=== PATIENT | male | born 1965 | race Caucasian/White ===

== ENCOUNTER 2018-07-27 10:28 | Emergency (ER) | payer MEDICARE ==
--- NOTE | 2018-07-27 11:12 | EDM.PDOC ---
ED HPI GENERAL MEDICAL PROBLEM - General Chief Complaint: Skin Complaint Stated Complaint: RIGHT HAND SWOLLEN,DRAINING Time Seen by Provider: 07/27/18 11:08 Source of Information: Reports: Patient History Limitations: Reports: No Limitations - History of Present Illness INITIAL COMMENTS - FREE TEXT/NARRATIVE: HISTORY AND PHYSICAL: History of present illness: Patient is a 52-year-old male here with complaint of infection on his right hand. He states he has been dealing with this for the past 3 months and is "fed up with "which is why he is here in the ER today. He has been seen at [facility] twice and had it drained, culture showed staph and he was placed on an antibiotic. He states it will get a little bit better but will continue to drain pus occasionally. He has noted a little bit more redness and irritation recently. He denies fevers or chills. 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 He denies any recent injury or trauma that started this recent infection. Past medical history significant for hypertension. Review of systems: As per history of present illness and below otherwise all systems reviewed and negative. Past medical history: As per history of present illness and as reviewed below otherwise noncontributory. Surgical history: As per history of present illness and as reviewed below otherwise noncontributory. Social history: No reported history of drug or alcohol abuse. Family history: As per history of present illness and as reviewed below otherwise noncontributory. Physical exam: General: Patient sitting comfortably in no acute distress and nontoxic appearing HEENT: Atraumatic, normocephalic, pupils reactive, negative for conjunctival pallor or scleral icterus, mucous membranes moist, throat clear, neck supple, nontender, trachea midline. No meningeal signs. Lungs: Clear to auscultation, breath sounds equal bilaterally, chest nontender. Heart: S1S2, regular, negative for clicks, rubs, or overt murmur. Abdomen: Soft, nondistended, nontender. Negative for masses or hepatosplenomegaly. Negative for costovertebral tenderness. Pelvis: Stable nontender. Genitourinary: Deferred. Rectal: Deferred. Extremities: There is an area of slight erythema to the dorsal right hand with a crusted center with some purulent drainage. There is no warmth or pain to palpatin. Atraumatic, negative for cords or calf pain. Neurovascular unremarkable. Neuro: Awake, alert, oriented. Cranial nerves II through XII unremarkable. Cerebellum unremarkable. Motor and sensory unremarkable throughout. Exam nonfocal. Notes: Diagnostics: x-ray right hand Therapeutics: None Prescriptions: Bactrim Impression: Cellulitis of hand Plan: 1. Take antibiotic and warm compresses as instructed. 2. Follow-up with hand surgery, please call the number provided to schedule your appointment. 3. Return to ED as needed as discussed Definitive disposition and diagnosis as appropriate pending reevaluation and review of above. Right Hand Pain Score (Numeric/FACES): 6 - Related Data Allergies Allergy/AdvReac Type Severity Reaction Status Date / Time No Known Allergies Allergy Verified 07/27/18 10:58 Home Meds: Home Meds Cimetidine [Tagamet Hb] 200 mg PO DAILY 07/27/18 [History] DULoxetine HCl [Cymbalta] 60 mg PO DAILY 07/27/18 [History] Lisinopril 10 mg PO DAILY 07/27/18 [History] Naproxen [Naprosyn] 500 mg PO PRN 07/27/18 [History] Sulfamethoxazole/Trimethoprim [Bactrim Ds Tablet] 1 each PO BID 7 Days #14 tablet 07/27/18 [Rx] amLODIPine Besylate [Norvasc] 5 mg PO DAILY 07/27/18 [History] Past Medical History Cardiovascular History: Reports: Hypertension Respiratory History: Reports: COPD - Past Surgical History HEENT Surgical History: Reports: Naso-Sinus Surgery, Oral Surgery Other Cardiovascular Surgeries/Procedures: states he has had major "chest surgery" Musculoskeletal Surgical History: Reports: Other (See Below) Other Musculoskeletal Surgeries/Procedures:: hand surgeries Social & Family History - Family History Family Medical History: Noncontributory - Tobacco Use Smoking Status *Q: Current Every Day Smoker Years of Tobacco use: 35 Packs/Tins Daily: 1 - Recreational Drug Use Recreational Drug Use: No ED ROS GENERAL - Review of Systems Review Of Systems: ROS reveals no pertinent complaints other than HPI. ED EXAM, SKIN/RASH Exam: See Below (see dictation) Course - Vital Signs Last Recorded V/S: Last Vital Signs Temp 97.4 F 07/27/18 10:56 Pulse 84 07/27/18 10:56 Resp 18 07/27/18 10:56 BP 147/63 H 07/27/18 10:56 Pulse Ox 98 07/27/18 10:56 Departure - Departure Time of Disposition: 11:45 Disposition: Home, Self-Care 01 Condition: Good Clinical Impression: Cellulitis and abscess of hand - Discharge Information Prescriptions: Sulfamethoxazole/Trimethoprim [Bactrim Ds Tablet] 1 each PO BID 7 Days #14 tablet Referrals: PCP,None [Primary Care Provider] - Jigna Cervantes MD [Physician] - 2 Weeks Forms: ED Department Discharge Additional Instructions: The following information is given to patients seen in the emergency department who are being discharged to home. This information is to outline your options for follow-up care. We provide all patients seen in our emergency department with a follow-up referral. The need for follow-up, as well as the timing and circumstances, are variable depending upon the specifics of your emergency department visit. If you don't have a primary care physician on staff, we will provide you with a referral. We always advise you to contact your personal physician following an emergency department visit to inform them of the circumstance of the visit and for follow-up with them and/or the need for any referrals to a consulting specialist. The emergency department will also refer you to a specialist when appropriate. This referral assures that you have the opportunity for follow-up care with a specialist. All of these measure are taken in an effort to provide you with optimal care, which includes your follow-up. Under all circumstances we always encourage you to contact your private physician who remains a resource for coordinating your care. When calling for follow-up care, please make the office aware that this follow-up is from your recent emergency room visit. If for any reason you are refused follow-up, please contact the [facility] Emergency Department at and asked to speak to the emergency department charge nurse. [facility] - [facility] Pl[facility] Professional Building [address] [place] [address], [address] [place] [address] 1. Take antibiotic and warm compresses as instructed. 2. Follow-up with hand surgery, please call the number provided to schedule your appointment. 3. Return to ED as needed as discussed
--- NOTE | 2018-07-27 11:38 | CR ---
EXAMINATION: Right hand HISTORY: Cellulitis COMPARISON: None TECHNIQUE: 2 views FINDINGS: Post amputation changes of the third digit and metacarpal noted. The remaining osseous structures appear intact. Bone mineralization appears grossly normal. Periosteal thickening noted involving the second and fourth metacarpals, likely chronic. Mild osteoarthritic changes noted at the first MCP joint. No subcutaneous gas formation. IMPRESSION: 1. No acute osseous abnormality identified.
== END 2018-07-27 11:58 | disposition home or self-care (01) ==
LOC: MW.ED 10:28
DX: L03.113 Cellulitis of right upper limb (principal); L02.511 Cutaneous abscess of right hand; I10 Essential (primary) hypertension; F17.210 Nicotine dependence, cigarettes, uncomplicated; Z79.899 Other long term (current) drug therapy
CPT/HCPCS: 73120-26-RT; 73120-RT; 99283

== ENCOUNTER 2018-12-21 18:31 | Emergency (ER) | payer MEDICARE, OTHER ==
--- NOTE | 2018-12-21 18:56 | EDM.PDOC ---
ED HPI GENERAL MEDICAL PROBLEM - General Chief Complaint: General Stated Complaint: MEDICAL CLEARANCE Time Seen by Provider: 12/21/18 18:32 Source of Information: Reports: Patient History Limitations: Reports: No Limitations - History of Present Illness INITIAL COMMENTS - FREE TEXT/NARRATIVE: HISTORY AND PHYSICAL: History of present illness: Patient is a 53-year-old male who presents to the emergency room with law enforcement for medical clearance. Patient states he has a history of hypertension and is concerned about a blister to his left ankle. Patient reports he is on antihypertensive medications which she does take daily. Concerned his blood pressure might be high right now. He states he noticed a blister to his left ankle earlier this week, states he saw Dr. Hills for this. He states he did have lab work and a referral to podiatry. Stating "he's not sure what it is". Patient states he has the appointment with podiatry next week. She offers no other complaints or concerns at this time. Patient denies any fever, chills, headache, change in vision, syncope or near syncope. Denies any chest pain, back pain, shortness of breath or cough. Denies any abdominal pain, nausea, vomiting, diarrhea, constipation or dysuria. Has not noted any blood in urine or stool. Patient has been eating and drinking appropriately. Review of systems: As per history of present illness and below otherwise all systems reviewed and negative. Past medical history: As per history of present illness and as reviewed below otherwise noncontributory. Surgical history: As per history of present illness and as reviewed below otherwise noncontributory. Social history: See social history for further information Family history: As per history of present illness and as reviewed below otherwise noncontributory. Physical exam: General: Well-developed and well-nourished 53-year-old male. Alert and oriented. Nontoxic appearing and in no acute distress. HEENT: Atraumatic, normocephalic, pupils equal and reactive bilaterally, negative for conjunctival pallor or scleral icterus, mucous membranes moist, trachea midline. No drooling or trismus noted. No meningeal signs. No hot potato voice noted. Lungs: Clear to auscultation, breath sounds equal bilaterally, chest nontender. Heart: S1S2, regular rate and rhythm without overt murmur Abdomen: Soft, nondistended, nontender. Skin: 4 mm circular blister noted to the left lateral ankle. Otherwise skin is intact, warm, dry. No lesions or rashes noted. Extremities: Atraumatic, moves all extremities per self without difficulty or deficits, negative for cords or calf pain. Neurovascular unremarkable. Neuro: Awake, alert, oriented. Cranial nerves II through XII unremarkable. Cerebellum unremarkable. Motor and sensory unremarkable throughout. Exam nonfocal. Notes: Patient states that he had x-rays and lab work done at [facility] earlier this week. He declines the need for further evaluation of this. Vital signs are stable at this time. He states that he does have his medications available to him. Bedside Glucose is 101. Supportive care measures were reviewed and discussed. Voices understanding and is agreeable to plan of care. Denies any further questions or concerns at this time. Diagnostics: None Therapeutics: None Prescription: None Impression: Encounter for medical clearance History of hypertension Blister Plan: 1. Take your home medications as prescribed and as directed. 2. Continue seeing Dr. Hills and the lettuce cutter as you already have arranged for your foot care needs. 3. Return to the ED as needed and as discussed. Definitive disposition and diagnosis as appropriate pending reevaluation and review of above. feet, back, shoulders, hip Pain Score (Numeric/FACES): 9 - Related Data Allergies Allergy/AdvReac Type Severity Reaction Status Date / Time No Known Allergies Allergy Verified 12/21/18 18:43 Home Meds: Home Meds Cimetidine [Tagamet Hb] 200 mg PO DAILY 07/27/18 [History] DULoxetine HCl [Cymbalta] 60 mg PO DAILY 07/27/18 [History] Lisinopril 10 mg PO DAILY 07/27/18 [History] Naproxen [Naprosyn] 500 mg PO PRN 07/27/18 [History] amLODIPine Besylate [Norvasc] 5 mg PO DAILY 07/27/18 [History] Hydrocodone/Acetaminophen [Hydrocodon-Acetaminophn 10-325] 1 tab PO BID [History] Past Medical History Cardiovascular History: Reports: Hypertension Respiratory History: Reports: COPD - Past Surgical History HEENT Surgical History: Reports: Naso-Sinus Surgery, Oral Surgery Other Cardiovascular Surgeries/Procedures: states he has had major "chest surgery" Respiratory Surgical History: Reports: Other (See Below) Other Respiratory Surgeries/Procedures: "lost half my lung" Musculoskeletal Surgical History: Reports: Other (See Below) Other Musculoskeletal Surgeries/Procedures:: hand surgeries Social & Family History - Family History Family Medical History: Noncontributory - Tobacco Use Smoking Status *Q: Current Every Day Smoker Years of Tobacco use: 45 Packs/Tins Daily: 2 - Alcohol Use Days Per Week of Alcohol Use: 7 Number of Drinks Per Day: 5 Total Drinks Per Week: 35 - Recreational Drug Use Recreational Drug Use: No ED ROS GENERAL - Review of Systems Review Of Systems: ROS reveals no pertinent complaints other than HPI. ED EXAM, GENERAL - Physical Exam Exam: See Below (See dictation) Course - Vital Signs Last Recorded V/S: Last Vital Signs Temp 98.1 F 12/21/18 18:38 Pulse 101 H 12/21/18 18:38 Resp 20 12/21/18 18:38 BP 129/66 12/21/18 18:38 Pulse Ox 93 L 12/21/18 18:38 Departure - Departure Time of Disposition: 18:55 Disposition: Home, Self-Care 01 Clinical Impression: Medical clearance for incarceration, History of hypertension, Blister - Discharge Information Instructions: Medical Screening Exam Referrals: Noé Hills MD [Primary Care Provider] - Forms: ED Department Discharge Additional Instructions: The following information is given to patients seen in the emergency department who are being discharged to home. This information is to outline your options for follow-up care. We provide all patients seen in our emergency department with a follow-up referral. The need for follow-up, as well as the timing and circumstances, are variable depending upon the specifics of your emergency department visit. If you don't have a primary care physician on staff, we will provide you with a referral. We always advise you to contact your personal physician following an emergency department visit to inform them of the circumstance of the visit and for follow-up with them and/or the need for any referrals to a consulting specialist. The emergency department will also refer you to a specialist when appropriate. This referral assures that you have the opportunity for follow-up care with a specialist. All of these measure are taken in an effort to provide you with optimal care, which includes your follow-up. Under all circumstances we always encourage you to contact your private physician who remains a resource for coordinating your care. When calling for follow-up care, please make the office aware that this follow-up is from your recent emergency room visit. If for any reason you are refused follow-up, please contact the [facility] Emergency Department at and asked to speak to the emergency department charge nurse. [facility] [address] [place] [id number] [facility] [address] [place] [id number] 1. Take your home medications as prescribed and as directed. 2. Continue seeing Dr. Hills and the lettuce cutter as you already have arranged for your foot care needs. 3. Return to the ED as needed and as discussed.
== END 2018-12-21 19:12 | disposition home or self-care (01) ==
LOC: MW.ED 18:31
DX: S90.522A Blister (nonthermal), left ankle, initial encounter (principal); I10 Essential (primary) hypertension; J44.9 Chronic obstructive pulmonary disease, unspecified; F17.210 Nicotine dependence, cigarettes, uncomplicated; Z79.899 Other long term (current) drug therapy; X58.XXXA Exposure to other specified factors, initial encounter
CPT/HCPCS: 82962; 99283

== ENCOUNTER 2019-02-02 01:06 | Emergency (ER) | payer MEDICARE ==
[2019-02-02] MEDS ORDERED: Ketorolac 30 MG/ML SDV IM ONE (01:31)
[2019-02-02 02:06] LABS: CHLORIDE,CL 99 mmol/L (98-107); SODIUM,NA 135 mmol/L (136-148)
--- NOTE | 2019-02-02 03:10 | EDM.PDOC ---
ED HPI GENERAL MEDICAL PROBLEM - General Chief Complaint: Lower Extremity Injury/Pain Stated Complaint: NEUROPATHY IN BOTH FEET- EXTREME PAIN Time Seen by Provider: 02/02/19 03:06 - History of Present Illness INITIAL COMMENTS - FREE TEXT/NARRATIVE: HISTORY AND PHYSICAL: History of present illness: Patient's 53-year-old white male with history of neuropathy who presents with concern of bilateral foot pain. This is a chronic condition he had no trauma no fever no chills no other complaints. Review of systems: As per history of present illness and below otherwise all systems reviewed and negative. Past medical history: As per history of present illness and as reviewed below otherwise noncontributory. Surgical history: As per history of present illness and as reviewed below otherwise noncontributory. Social history: No reported history of drug or alcohol abuse. Family history: As per history of present illness and as reviewed below otherwise noncontributory. Physical exam: HEENT: Atraumatic, normocephalic, pupils reactive, negative for conjunctival pallor or scleral icterus, mucous membranes moist, throat clear, neck supple, nontender, trachea midline. Lungs: Clear to auscultation, breath sounds equal bilaterally, chest nontender. Heart: S1S2, regular, negative for clicks, rubs, or JVD. Abdomen: Soft, nondistended, nontender. Negative for masses or hepatosplenomegaly. Negative for costovertebral tenderness. Pelvis: Stable nontender. Genitourinary: Deferred. Rectal: Deferred. Extremities: Atraumatic, negative for cords or calf pain. Neurovascular unremarkable. Neuro: Awake, alert, oriented. Cranial nerves II through XII unremarkable. Cerebellum unremarkable. Motor and sensory unremarkable throughout. Exam nonfocal. Diagnostics: CBC CMP Therapeutics: Toradol 30 mg IM Impression: #1 chronic foot pain #2 neuropathy Definitive disposition and diagnosis as appropriate pending reevaluation and review of above. bilateral feet Pain Score (Numeric/FACES): 10 - Related Data Allergies Allergy/AdvReac Type Severity Reaction Status Date / Time No Known Allergies Allergy Verified 02/02/19 01:28 Home Meds: Home Meds Cimetidine [Tagamet Hb] 200 mg PO DAILY 07/27/18 [History] DULoxetine HCl [Cymbalta] 60 mg PO DAILY 07/27/18 [History] Lisinopril 10 mg PO DAILY 07/27/18 [History] Naproxen [Naprosyn] 500 mg PO PRN 07/27/18 [History] amLODIPine Besylate [Norvasc] 5 mg PO DAILY 07/27/18 [History] Past Medical History Cardiovascular History: Reports: Hypertension Respiratory History: Reports: COPD Gastrointestinal History: Reports: GERD Genitourinary History: Reports: None Neurological History: Reports: Neuropathy, Peripheral Psychiatric History: Reports: Depression Endocrine/Metabolic History: Reports: None Hematologic History: Reports: None Oncologic (Cancer) History: Reports: None Dermatologic History: Reports: None - Past Surgical History HEENT Surgical History: Reports: Naso-Sinus Surgery, Oral Surgery Other Cardiovascular Surgeries/Procedures: states he has had major "chest surgery" Respiratory Surgical History: Reports: Other (See Below) Other Respiratory Surgeries/Procedures: "lost half my lung" Musculoskeletal Surgical History: Reports: Other (See Below) Other Musculoskeletal Surgeries/Procedures:: hand surgeries Social & Family History - Family History Family Medical History: Noncontributory - Tobacco Use Smoking Status *Q: Current Every Day Smoker Years of Tobacco use: 40 Packs/Tins Daily: 1 - Recreational Drug Use Recreational Drug Use: No Review of Systems - Review of Systems Review Of Systems: ROS reveals no pertinent complaints other than HPI. ED EXAM, GENERAL - Physical Exam Exam: See Below (See dictation) Course - Vital Signs Last Recorded V/S: Last Vital Signs Temp 36.8 C 02/02/19 01:31 Pulse 85 02/02/19 01:31 Resp 18 02/02/19 01:31 BP 114/88 02/02/19 01:31 Pulse Ox 96 02/02/19 01:31 - Orders/Labs/Meds Labs: Laboratory Tests 02/02/19 02/02/19 Range/Units 01:40 01:40 WBC 14.35 H (4.0-11.0) K/uL RBC 5.03 (4.50-5.90) M/uL Hgb 15.2 (13.0-17.0) g/dL Hct 43.1 (38.0-50.0) % MCV 85.7 (80.0-98.0) fL MCH 30.2 (27.0-32.0) pg MCHC 35.3 (31.0-37.0) g/dL RDW Std Deviation 44.8 (28.0-62.0) fl RDW Coeff of Bety 15 (11.0-15.0) % Plt Count 221 (150-400) K/uL MPV 8.70 (7.40-12.00) fL Neut % (Auto) 20.5 L (48.0-80.0) % Lymph % (Auto) 65.0 H (16.0-40.0) % [place] % (Auto) 10.9 (0.0-15.0) % Eos % (Auto) 3.3 (0.0-7.0) % Baso % (Auto) 0.3 (0.0-1.5) % Neut # (Auto) 2.9 (1.4-5.7) K/uL Lymph # (Auto) 9.3 H (0.6-2.4) K/uL [place] # (Auto) 1.6 H (0.0-0.8) K/uL Eos # (Auto) 0.5 (0.0-0.7) K/uL Baso # (Auto) 0.0 (0.0-0.1) K/uL Sodium 135 L (136-148) mmol/L Potassium 4.0 (3.5-5.1) mmol/L Chloride 99 (98-107) mmol/L Carbon Dioxide 24.4 (21.0-32.0) mmol/L BUN 8 (7.0-18.0) mg/dL Creatinine 0.5 L (0.8-1.3) mg/dL Est Cr Clr Drug Dosing 174.39 mL/min Estimated GFR (MDRD) > 60.0 ml/min Glucose 95 (74-106) mg/dL Calcium 8.6 (8.5-10.1) mg/dL Total Bilirubin 0.4 (0.2-1.0) mg/dL AST 42 H (15-37) IU/L ALT 41 (14-63) IU/L Alkaline Phosphatase 109 (46-116) U/L Creatine Kinase 49 (26-308) U/L Total Protein 7.2 (6.4-8.2) g/dL Albumin 4.0 (3.4-5.0) g/dL Globulin 3.2 (2.6-4.0) g/dL Albumin/Globulin Ratio 1.3 (0.9-1.6) Meds: Medications Discontinued Medications Generic Name Dose Route Start Last Admin Trade Name Shreyas PRN Reason Stop Dose Admin Ketorolac Tromethamine 30 mg 02/02/19 01:31 02/02/19 01:52 Toradol IM 02/02/19 01:32 30 mg ONETIME ONE Administration Departure - Departure Time of Disposition: 03:09 Disposition: Home, Self-Care 01 Condition: Good Clinical Impression: Chronic foot pain, Neuropathy - Discharge Information Referrals: Noé Hills MD [Primary Care Provider] - Additional Instructions: The following information is given to patients seen in the emergency department who are being discharged to home. This information is to outline your options for follow-up care. We provide all patients seen in our emergency department with a follow-up referral. The need for follow-up, as well as the timing and circumstances, are variable depending upon the specifics of your emergency department visit. If you don't have a primary care physician on staff, we will provide you with a referral. We always advise you to contact your personal physician following an emergency department visit to inform them of the circumstance of the visit and for follow-up with them and/or the need for any referrals to a consulting specialist. The emergency department will also refer you to a specialist when appropriate. This referral assures that you have the opportunity for followup care with a specialist. All of these measure are taken in an effort to provide you with optimal care, which includes your followup. Under all circumstances we always encourage you to contact your private physician who remains a resource for coordinating your care. When calling for followup care, please make the office aware that this follow-up is from your recent emergency room visit. If for any reason you are refused follow-up, please contact the [facility] emergency department at and asked to speak to the emergency department charge nurse. [facility] - Podiatry [address] [place] [id number] Fax: [phone] Continue current medications follow-up private medical doctor/podiatry as discussed return as needed as discussed
== END 2019-02-02 03:11 | disposition home or self-care (01) ==
LOC: MW.ED 01:06
DX: G62.9 Polyneuropathy, unspecified (principal); F17.210 Nicotine dependence, cigarettes, uncomplicated; I10 Essential (primary) hypertension; Z79.899 Other long term (current) drug therapy
CPT/HCPCS: 36415; 80053; 82550; 85025; 96372; 99283; J1885

== ENCOUNTER 2019-02-10 17:10 | Emergency (ER) | payer MEDICARE ==
[2019-02-10] MEDS ORDERED: Ketorolac 60 MG/2 ML SDV IM ONE (17:34)
[2019-02-10 18:08] LABS: CHLORIDE,CL 94 mmol/L (98-107); SODIUM,NA 128 mmol/L (136-148)
--- NOTE | 2019-02-10 18:19 | EDM.PDOC ---
ED HPI GENERAL MEDICAL PROBLEM - General Chief Complaint: Lower Extremity Injury/Pain Stated Complaint: FEET SWELLING, PAIN Time Seen by Provider: 02/10/19 17:25 Source of Information: Reports: Patient History Limitations: Reports: No Limitations - History of Present Illness INITIAL COMMENTS - FREE TEXT/NARRATIVE: HISTORY AND PHYSICAL: History of present illness: patient is a 53-year-old male presents to the ED with complaint of bilateral foot pain and swelling. Patient is going on for about 2 months and is concerned that he is going to lose his feet. He has a primary care provider, basket patcher, and will be seeing a senior java j2ee developer on Wednesday. he states he has numbness on the tops of both feet. He denies fevers or chills. Review of systems: As per history of present illness and below otherwise all systems reviewed and negative. Past medical history: As per history of present illness and as reviewed below otherwise noncontributory. Surgical history: As per history of present illness and as reviewed below otherwise noncontributory. Social history: No reported history of drug or alcohol abuse. Family history: As per history of present illness and as reviewed below otherwise noncontributory. Physical exam: General: Patient sitting comfortably in no acute distress and nontoxic appearing HEENT: Atraumatic, normocephalic, pupils reactive, negative for conjunctival pallor or scleral icterus, mucous membranes moist, throat clear, neck supple, nontender, trachea midline. No meningeal signs. Lungs: Clear to auscultation, breath sounds equal bilaterally, chest nontender. Heart: S1S2, regular, negative for clicks, rubs, or overt murmur. Abdomen: Soft, nondistended, nontender. Negative for masses or hepatosplenomegaly. Negative for costovertebral tenderness. No rigidity, rebound , guarding. Pelvis: Stable nontender. Genitourinary: Deferred. Rectal: Deferred. Extremities: 1+ edema of the feet bilaterally. Scabbed area on the top of the right foot with some surrounding erythema and warmth. dorsalis pedis pulses are 2+ bilaterally negative for cords or calf pain. Neurovascular unremarkable. Neuro: Awake, alert, oriented. Cranial nerves II through XII unremarkable. Cerebellum unremarkable. Motor and sensory unremarkable throughout. Exam nonfocal. Notes: Diagnostics: CBC, CMP, x-ray left foot x-ray right foot Therapeutics: [] Prescriptions: Impression: [] Plan: patient eloped from the ED Definitive disposition and diagnosis as appropriate pending reevaluation and review of above. feet Pain Score (Numeric/FACES): 10 - Related Data Allergies Allergy/AdvReac Type Severity Reaction Status Date / Time No Known Allergies Allergy Verified 02/02/19 01:28 Home Meds: Home Meds Cimetidine [Tagamet Hb] 200 mg PO DAILY 07/27/18 [History] DULoxetine HCl [Cymbalta] 60 mg PO DAILY 07/27/18 [History] Lisinopril 10 mg PO DAILY 07/27/18 [History] Naproxen [Naprosyn] 500 mg PO PRN 07/27/18 [History] amLODIPine Besylate [Norvasc] 5 mg PO DAILY 07/27/18 [History] Past Medical History Cardiovascular History: Reports: Hypertension Respiratory History: Reports: COPD Gastrointestinal History: Reports: GERD Genitourinary History: Reports: None Neurological History: Reports: Neuropathy, Peripheral Psychiatric History: Reports: Depression Endocrine/Metabolic History: Reports: None Hematologic History: Reports: None Oncologic (Cancer) History: Reports: None Dermatologic History: Reports: None - Past Surgical History HEENT Surgical History: Reports: Naso-Sinus Surgery, Oral Surgery Other Cardiovascular Surgeries/Procedures: states he has had major "chest surgery" Respiratory Surgical History: Reports: Other (See Below) Other Respiratory Surgeries/Procedures: "lost half my lung" Musculoskeletal Surgical History: Reports: Other (See Below) Other Musculoskeletal Surgeries/Procedures:: hand surgeries Social & Family History - Family History Family Medical History: Noncontributory - Tobacco Use Smoking Status *Q: Current Every Day Smoker Years of Tobacco use: 40 Packs/Tins Daily: 1 - Alcohol Use Days Per Week of Alcohol Use: 7 Number of Drinks Per Day: 12 Total Drinks Per Week: 84 - Recreational Drug Use Recreational Drug Use: No Review of Systems - Review of Systems Review Of Systems: ROS reveals no pertinent complaints other than HPI. ED EXAM, GENERAL - Physical Exam Exam: See Below (see dictation) Course - Vital Signs Last Recorded V/S: Last Vital Signs Temp 97.8 F 02/10/19 17:20 Pulse 100 02/10/19 17:20 Resp 20 02/10/19 17:20 BP 124/71 02/10/19 17:20 Pulse Ox 100 02/10/19 17:20 - Orders/Labs/Meds Labs: Laboratory Tests 02/10/19 02/10/19 Range/Units 17:44 17:44 WBC 14.85 H (4.0-11.0) K/uL RBC 5.32 (4.50-5.90) M/uL Hgb 16.3 (13.0-17.0) g/dL Hct 45.9 (38.0-50.0) % MCV 86.3 (80.0-98.0) fL MCH 30.6 (27.0-32.0) pg MCHC 35.5 (31.0-37.0) g/dL RDW Std Deviation 46.6 (28.0-62.0) fl RDW Coeff of Bety 15 (11.0-15.0) % Plt Count 194 (150-400) K/uL MPV 8.70 (7.40-12.00) fL Neut % (Auto) 32.8 L (48.0-80.0) % Lymph % (Auto) 50.9 H (16.0-40.0) % Charles % (Auto) 14.0 (0.0-15.0) % Eos % (Auto) 1.8 (0.0-7.0) % Baso % (Auto) 0.5 (0.0-1.5) % Neut # (Auto) 4.9 (1.4-5.7) K/uL Lymph # (Auto) 7.6 H (0.6-2.4) K/uL Charles # (Auto) 2.1 H (0.0-0.8) K/uL Eos # (Auto) 0.3 (0.0-0.7) K/uL Baso # (Auto) 0.1 (0.0-0.1) K/uL Nucleated RBC % 0.0 /100WBC Nucleated RBCs # 0 K/uL Sodium 128 L (136-148) mmol/L Potassium 4.2 (3.5-5.1) mmol/L Chloride 94 L (98-107) mmol/L Carbon Dioxide 21.1 (21.0-32.0) mmol/L BUN 10 (7.0-18.0) mg/dL Creatinine 0.6 L (0.8-1.3) mg/dL Est Cr Clr Drug Dosing 97.52 mL/min Estimated GFR (MDRD) > 60.0 ml/min Glucose 95 (74-106) mg/dL Calcium 9.2 (8.5-10.1) mg/dL Total Bilirubin 0.7 (0.2-1.0) mg/dL AST 37 (15-37) IU/L ALT 32 (14-63) IU/L Alkaline Phosphatase 98 (46-116) U/L Total Protein 7.6 (6.4-8.2) g/dL Albumin 4.2 (3.4-5.0) g/dL Globulin 3.4 (2.6-4.0) g/dL Albumin/Globulin Ratio 1.2 (0.9-1.6) Meds: Medications Discontinued Medications Generic Name Dose Route Start Last Admin Trade Name Freq PRN Reason Stop Dose Admin Ketorolac Tromethamine 60 mg 02/10/19 17:34 02/10/19 17:39 Toradol IM 02/10/19 17:35 60 mg ONETIME ONE Administration Departure - Departure Time of Disposition: 18:19 Disposition: Eloped 07 Condition: Good Clinical Impression: Bilateral foot pain - Discharge Information Referrals: Noé Hills MD [Primary Care Provider] -
== END 2019-02-10 18:00 | disposition left against medical advice (07) ==
LOC: MW.ED 17:10
DX: M79.672 Pain in left foot (principal); M79.671 Pain in right foot; I10 Essential (primary) hypertension; J44.9 Chronic obstructive pulmonary disease, unspecified; F32.9 Major depressive disorder, single episode, unspecified; K21.9 Gastro-esophageal reflux disease without esophagitis; F17.210 Nicotine dependence, cigarettes, uncomplicated; Z79.899 Other long term (current) drug therapy; Z53.20 Procedure and treatment not carried out because of patient's decision for unspecified reasons
CPT/HCPCS: 36415; 80053; 85025; 96372; 99283; J1885; 99282